=== PATIENT | female | born 1995 | race Caucasian/White ===

== ENCOUNTER 2018-09-16 17:17 | Emergency (ER) | payer MEDICAID ==
[2018-09-16 17:31] VITALS: BP 127/78
[2018-09-16] MEDS ORDERED: CLINDAMYCIN 150 MG CAPSULE PO STA (17:34)
--- NOTE | 2018-09-16 17:37 | ED Physician Documentation ---
PD HPI HEENT - Stated complaint Stated Complaint: SWOLLEN FACE, TOOTH - Chief complaint Chief Complaint: Heent - History obtained from History obtained from: Patient - History of Present Illness Timing - onset: Yesterday Timing - details: Still present Location: Tooth Associated symptoms: Facial swelling Similar symptoms before: Has not had sx before - Treatment prior to arrival Treatment prior to arrival: Ibuprophen - Additional information Additional information: The patient is a 22-year-old female who presents with toothache from a decayed right upper molar, with associated right facial swelling. Her symptoms started yesterday and have become worse today. She denies fever, headache, sore throat, or cough. She denies history of similar symptoms in the past. Review of Systems Constitutional: denies: Fever Eyes: denies: Irritation Ears: denies: Ear pain Nose: denies: Congestion Throat: denies: Sore throat Cardiac: denies: Chest pain / pressure Respiratory: denies: Dyspnea, Cough GI: denies: Nausea, Vomiting Skin: denies: Rash Musculoskeletal: denies: Neck pain Neurologic: denies: Headache PD PAST MEDICAL HISTORY - Past Medical History Past Medical History: No - Present Medications Home Medications: Ambulatory Orders Medication Instructions Recorded Confirmed Clindamycin HCl [Clindamycin 300MG 300 mg PO Q6H #28 capsule 09/16/18 CAP] Hydrocodone/Acetaminophen 1 each PO Q6H PRN #12 tablet 09/16/18 [Hydrocodon-Acetaminophen 5-325] - Allergies Allergies/Adverse Reactions: Allergies Allergy/AdvReac Type Severity Reaction Status Date / Time No Known Drug Allergies Allergy Verified 09/16/18 17:26 - Social History Does the pt smoke?: No Smoking Status: Never smoker PD ED PE NORMAL - Vitals Vital signs reviewed: Yes (normal) - General General: Alert and oriented X 3, Well developed/nourished - HEENT HEENT: Atraumatic, EOMI, Ears normal, Pharynx benign, Other (There is right facial swelling, with tenderness to palpation of a decayed right upper molar. There is also decayed right lower molar with a draining gingival abscess.) - Neck Neck: Supple, no meningeal sign, No adenopathy - Cardiac Cardiac: RRR - Respiratory Respiratory: No respiratory distress, Clear bilaterally - Derm Derm: No rash - Extremities Extremities: Other (Erythematous birthmark on the left forearm and hand.) - Neuro Neuro: Alert and oriented X 3, No motor deficit, Normal speech Results - Vitals Vitals: Vital Signs - 24 hr 09/16/18 17:26 Temperature 36.8 C Heart Rate 72 Respiratory 14 Rate Blood Pressure 127/78 O2 Saturation 99 Oxygen O2 Source Room air PD MEDICAL DECISION MAKING - ED course Complexity details: considered differential, d/w patient ED course: The patient's presentation is significant for dental abscess with right facial swelling. Her presentation does not suggest peritonsillar abscess or periorbital cellulitis. Treatment in the emergency department included administration of clindamycin 300 mg orally. She is being discharged with prescriptions for clindamycin and for Vicodin, 12 tablets. I discussed with her antibiotic treatment, the importance of follow-up with a dentist, as well as potentially worrisome signs or symptoms that should prompt reevaluation in the e mergency department. Departure - Departure Disposition: 01 Home, Self Care Clinical Impression: Dental abscess Condition: Stable Instructions: ED Abscess Dental Follow-Up: [facility] [Provider Group] Prescriptions: Clindamycin HCl [Clindamycin 300MG CAP] 300 mg PO Q6H #28 capsule Hydrocodone/Acetaminophen [Hydrocodon-Acetaminophen 5-325] 1 each PO Q6H PRN #12 tablet PRN Reason: pain Comments: Take clindamycin 4 times daily as prescribed. You can use Tylenol or ibuprofen for fever or discomfort. You can also use Vicodin as prescribed if needed for pain. Follow-up with a dentist as soon as possible. Call to schedule an appointment. Return to the emergency department if you develop increasing facial swelling, difficulty swallowing, pain with eye movement, or otherwise worsening symptoms.
== END 2018-09-16 17:47 | disposition home or self-care (01) ==
LOC: ED 17:17
DX: K04.7 Periapical abscess without sinus (principal)
CPT/HCPCS: 99283; A9270